=== PATIENT | female | born 1975 | race Caucasian/White ===

== ENCOUNTER 2016-10-31 14:04 | Emergency (ER) | payer OTHER ==
[~2016-10-31] VITALS: Ht 160 cm; Wt 108.5 kg
[2016-10-31 14:08] VITALS: Ht 160 cm; Wt 108.5 kg
[2016-10-31] MEDS ORDERED: OFLO5DRO7 LEFT EAR (14:27)
[2016-10-31] MEDS ORDERED: AMOX1TAB10 PO (14:27)
--- NOTE | 2016-10-31 14:35 | ERD ---
ER Documentation Chief Complaint Date/Time DATE: 10/31/16 TIME: 14:29 Chief Complaint LEFT EAR PAIN X 2 WEEKS HPI 41 yo female comes in with left ear pain for 2 weeks. She states it is in the inner ear that radiates outside, moderate pain that is achy. No recent swimming. No discharge, otorrhea. No fever or chills. No URI symptoms. ROS All systems reviewed and are negative except as per history of present illness. Medications Home Meds Active Scripts Ofloxacin Otic (Ofloxacin Otic) 5 Ml Drops, 5 DROP LEFT EAR DAILY for 7 Days, # 1 BOTTLE Prov:JEY MCKNIGHT PA-C 10/31/16 Amoxicillin/Potassium Clav (Amox-Clav 875-125 mg Tablet) 875-125 mg Tab, 1 TAB PO BID for 7 Days, #14 TAB Prov:JEY MCKNIGHT PA-C 10/31/16 Allergies Allergies: Coded Allergies: No Known Allergy (Unverified , 10/31/16) PMhx/Soc Hx Alcohol Use: No Hx Substance Use: No Hx Tobacco Use: No Physical Exam Vitals Vital Signs Date Time Temp Pulse Resp B/P Pulse Ox O2 Delivery O2 Flow Rate FiO2 10/31/16 14:08 99.1 70 18 127/73 98 Physical Exam General: Well-developed, well-nourished. The patient appears in no acute distress. HEENT: Head is normocephalic, atraumatic. No scleral icterus. Left inner ear is erythematous, no perforation, otorrhea or discharge, there is tenderness at the external ear canal with otoscope introduction. Mastoids are nontender. Neck: Supple. Nontender. Lungs: Clear to auscultation. Normal air movement. Heart: Regular rate and rhythm. S1 and S2 are normal. No murmurs, gallops, or rubs. Abdomen: Nondistended. Extremities: No clubbing or cyanosis. Moving extremities x 4. No weakness. Neurologic: Alert and oriented 3. No focal deficits. Normal speech and gait. Skin: Normal turgor. No rash or lesions. Procedures/MDM 41-year-old female comes in with otitis media left ear, otitis externa. No evidence of mastoiditis, meningitis, deep space infection, cellulitis or foreign body. Departure Diagnosis: Primary Impression: Left otitis media Condition: Good Patient Instructions: Understanding Middle Ear Infections, External Ear Infection (Adult) Additional Instructions: Llame al doctor MAANA y nik hilary MARIA GUADALUPE PARA DENTRO DE 1-2 EASTMAN.Dgale a la secretaria que nosotros le instruimos hacer esta maria guadalupe.Avise o llame si boyce condicin se empeora antes de la maria guadalupe. Regresa aqui si peor o no mejor. JEY MCKNIGHT PA-C Oct 31, 2016 14:35
== END 2016-10-31 14:59 | disposition home or self-care (01) ==
LOC: FTE 14:04
DX: H66.92 Otitis media, unspecified, left ear (principal)
CPT/HCPCS: 99283

== ENCOUNTER 2016-11-03 11:18 | Emergency (ER) | payer OTHER ==
[~2016-11-03] VITALS: Ht 160 cm; Wt 100.0 kg
[~2016-11-03 11:18] MED LIST: AMOX1TAB10 PO; OFLO5DRO7 LEFT EAR
[2016-11-03 11:23] VITALS: Ht 160 cm; Wt 100.0 kg
--- NOTE | 2016-11-03 11:47 | ERD ---
ER Documentation Chief Complaint Date/Time DATE: 11/03/16 TIME: 11:43 Chief Complaint left ear ache HPI 41-year-old female comes in with left inner ear fullness, difficulty hearing. She was recently treated for otitis media and otitis externa has been using eardrops on occasion. She reports that she feels lightheaded, vertiginous symptoms with the room feels like it is spinning. She has not had any fevers or chills. No neck stiffness. Denies otorrhea or discharge. ROS All systems reviewed and are negative except as per history of present illness. Medications Home Meds Active Scripts Cetirizine Hcl* (Zyrtec*) 10 Mg Capsule, 10 MG PO DAILY, #10 TAB.CHEW Prov:JEY MCKNIGHT PA-C 11/03/16 Pseudoephedrine Hcl (Sudafed 12 Hour) 120 Mg Tablet.sa, 120 MG PO BID, #6 Prov:JEY MCKNIGHT PA-C 11/03/16 Ofloxacin Otic (Ofloxacin Otic) 5 Ml Drops, 5 DROP LEFT EAR DAILY for 7 Days, # 1 BOTTLE Prov:JEY MCKNIGHT PA-C 10/31/16 Amoxicillin/Potassium Clav (Amox-Clav 875-125 mg Tablet) 875-125 mg Tab, 1 TAB PO BID for 7 Days, #14 TAB Prov:JEY MCKNIGHT PA-C 10/31/16 Allergies Allergies: Coded Allergies: No Known Allergy (Unverified , 10/31/16) PMhx/Soc Medical and Surgical Hx: pt denies Medical Hx, pt denies Surgical Hx Hx Alcohol Use: No Hx Substance Use: No Hx Tobacco Use: No Smoking Status: Never smoker Physical Exam Vitals Vital Signs Date Time Temp Pulse Resp B/P Pulse Ox O2 Delivery O2 Flow Rate FiO2 11/03/16 11:23 97.9 68 18 128/60 99 Physical Exam General: Well-developed, well-nourished. The patient appears in no acute distress. HEENT: Head is normocephalic, atraumatic. No scleral icterus. Right ear is normal, left ear has debris, there is erythema to the external canal. There is no mastoid tenderness. Neck: Supple. Nontender. Lungs: Clear to auscultation. Normal air movement. Heart: Regular rate and rhythm. S1 and S2 are normal. No murmurs, gallops, or rubs. Abdomen: Nondistended. Extremities: No clubbing or cyanosis. Moving extremities x 4. No weakness. Neurologic: Alert and oriented 3. No focal deficits. Normal speech and gait. Skin: Normal turgor. No rash or lesions. Procedures/MDM ED course: Irrigation was done to the left ear with Normal saline, and patient reports symptomatic improvement, TM is bulging with slight erythema, no perforation. Medical decision making: This is a 41-year-old female comes in with left-sided ear pain, improving and she reports ear fullness as well as difficulty hearing. Patient states that her pain has improved with antibiotics. I will advise her to continue the ofloxacin otic drops and Augmentin. She does have fullness to the tympanic membrane, and will be given Zyrtec and Sudafed for this. Vertiginous dizziness is likely associated with the infection. I doubt meningitis, deep space infection, there are no signs of mastoiditis. Departure Diagnosis: Primary Impression: Left ear pain Condition: Good JEY MCKNIGHT PA-C Nov 03, 2016 11:47
[2016-11-03] MEDS ORDERED: PSEU120T51 PO (12:57)
[2016-11-03] MEDS ORDERED: CETI10CA PO (12:57)
== END 2016-11-03 14:05 | disposition home or self-care (01) ==
LOC: FTE 11:18
DX: H92.02 Otalgia, left ear (principal)
CPT/HCPCS: 99283

== ENCOUNTER 2018-05-12 08:41 | Emergency (ER) | payer OTHER ==
[~2018-05-12] VITALS: Wt 108.5 kg
[~2018-05-12 08:41] MED LIST changes: +CETI10CA PO; +PSEU120T12 PO
[2018-05-12 08:44] VITALS: BP 135/81; PULSE 70; RESP 18
[2018-05-12] MEDS ORDERED: KETOROLAC 30 MG INJ IM STA (09:34)
[2018-05-12] MEDS ORDERED: IBUP-1542 PO (10:30)
[2018-05-12] MEDS ORDERED: FIORICET PO (10:30)
--- NOTE | 2018-05-12 17:12 | ERD ---
ER Documentation Chief Complaint Chief Complaint HEADACHE SINCE YESTERDAY HPI 43-year-old female presents for headache times 1 day. Patient states that the headache is on the right side. Patient took Tylenol and Motrin at home with only mild relief. The headache is noted to be 8 out of 10, associated with photophobia. She denies any nausea vomiting. Denies fevers or chills. She has had similar headaches in the past. No other complaints. ROS All systems reviewed and are negative except as per history of present illness. Medications Home Meds Active Scripts Acetamin/Butalbital/Caffeine* (Fioricet*) [id number] Tab, 1 TAB PO Q6H PRN for PAIN, #30 TAB Prov:ABDIFATAH RODRIGUEZ DO 05/12/18 Ibuprofen* (Motrin*) 600 Mg Tab, 600 MG PO Q6H PRN for PAIN, #30 TAB Prov:ABDIFATAH RODRIGUEZ DO 05/12/18 Cetirizine Hcl* (Zyrtec*) 10 Mg Capsule, 10 MG PO DAILY, #10 TAB.CHEW Prov:JEY MCKNIGHT PA-C 11/03/16 Pseudoephedrine Hcl (Sudafed 12 Hour) 120 Mg Tablet.sa, 120 MG PO BID, #6 Prov:JEY MCKNIGHT PA-C 11/03/16 Ofloxacin Otic (Ofloxacin Otic) 5 Ml Drops, 5 DROP LEFT EAR DAILY for 7 Days, #1 BOTTLE Prov:JEY MCKNIGHT PA-C 10/31/16 Amoxicillin/Potassium Clav (Amox-Clav 875-125 mg Tablet) 875-125 mg Tab, 1 TAB PO BID for 7 Days, #14 TAB Prov:JEY MCKNIGHT PA-C 10/31/16 Allergies Allergies: Coded Allergies: No Known Allergy (Unverified , 10/31/16) PMhx/Soc History of Surgery: No Anesthesia Reaction: No Hx Neurological Disorder: No Hx Respiratory Disorders: No Hx Cardiac Disorders: No Hx Psychiatric Problems: No Hx Miscellaneous Medical Probl: No Hx Alcohol Use: No Hx Substance Use: No Hx Tobacco Use: No Smoking Status: Never smoker Physical Exam Vitals Temperature 98.2, pulse 70, respiration 18, blood pressure 135/81 Physical Exam Const: No acute distress Head: Atraumatic, no temporal tenderness to palpation Eyes: Normal Conjunctiva ENT: Normal External Ears, Nose and Mouth. Neck: Full range of motion. No meningismus. Resp: Clear to auscultation bilaterally Cardio: Regular rate and rhythm, no murmurs, bilateral radial and dorsalis pedis pulses intact Skin: No petechiae or rashes Back: No midline or flank tenderness Ext: No cyanosis, or edema, bilateral upper and lower extremity muscle strength intact Neur: Awake and alert, bilateral upper and lower extremity sensation intact Psych: Normal Mood and Affect Results 24 hrs Laboratory Tests Test 05/12/18 09:43 POC Beta HCG, Qualitative NEGATIVE Current Medications Medications Dose Sig/Viki Start Time Status Last (Trade) Ordered Route PRN Stop Time Admin Dose Reason Admin Ketorolac 30 mg ONCE STAT 05/12/18 DC 05/12/18 Tromethamine IM 09:34 09:56 (Toradol) 05/12/18 09:35 Procedures/MDM Medical Decision Making: Differential diagnosis includes but not limited to primary headache, subarachnoid hemorrhage, meningitis, temporal arteritis, glaucoma, hypertension, cerebral ischemia, carotid or vertebral arterial dissection, brain tumor. Patient appeared well on physical examination, nontoxic appearing. No history of fever. There is low suspicion for meningitis. Given patient's age and no temporal area tenderness to palpation, low suspicion for temporal arteritis. Patient has no vision changes and pupils are reactive bilaterally, low suspicion for glaucoma. There is also no focal neurologic deficits to suggest a brain tumor. Patient has normal sensation and muscle strength, low suspicion for cerebral ischemia. Given headache is similar to prior headaches, patient possibly has a primary headache. In the ER patient given Toradol Symptoms improved with treatment. Patient given prescription for Fioricet Patient advised to follow up with PCP in 1-2 days. Patient advised to return to ED for new or worsening symptoms. Patient stable on discharge from the ED. Disclaimer: Inadvertent spelling and grammatical errors are likely due to EHR/dictation software use and do not reflect on the overall quality of patient care. Also, please note that the electronic time recorded on this note does not necessarily reflect the actual time of the patient encounter. Departure Diagnosis: Primary Impression: Headache Headache type: unspecified Headache chronicity pattern: unspecified pattern Intractability: not intractable Qualified Codes: R51 - Headache Condition: Fair Patient Instructions: Self-Care for Headaches Referrals: ABDIFATAH SHEA MD (PCP) Additional Instructions: Llame al doctor MAANA y nik hilary MARIA GUADALUPE PARA DENTRO DE 1-2 [place].Dgale a la secretaria que nosotros le instruimos hacer esta maria guadalupe.Avise o llame si boyce condicin se empeora antes de la maria guadalupe. Regresa aqui si peor o no mejor. ABDIFATAH RODRIGUEZ DO May 12, 2018 17:12
== END 2018-05-12 13:45 | disposition home or self-care (01) ==
LOC: FTE 08:41
DX: R51 Headache (principal)
CPT/HCPCS: 81025; 96372; J1885; Z7502

== ENCOUNTER 2018-09-19 09:45 | Emergency (ER) | payer OTHER ==
[~2018-09-19] VITALS: Ht 165.1 cm; Wt 100.0 kg
[~2018-09-19 09:45] MED LIST changes: +FIORICET PO; +IBUP-1542 PO
[2018-09-19 10:05] VITALS: Ht 165.1 cm; Wt 100.0 kg
[2018-09-19] MEDS ORDERED: ESCI10TA48 PO (12:10)
[2018-09-19 12:20] VITALS: BP 123/61; PULSE 68; RESP 16
--- NOTE | 2018-09-19 13:19 | ERD ---
ER Documentation Chief Complaint Chief Complaint SI ; NEEDS PSYCHOLOGICAL EVALUATION HPI 43-year-old woman with a history of depression presenting with increased anhedonia for the last few months. She states she has had mild low level daily depression for a few years but has never attempted medical therapy. She denies suicidal homicidal ideation, no fevers or chills, no complaints of chest pain or shortness of breath. She like to begin therapy until she follows up with her PMD. ROS All systems reviewed and are negative except as per history of present illness. Medications Home Meds Active Scripts Escitalopram Oxalate* (Escitalopram Oxalate*) 10 Mg Tablet, 10 MG PO DAILY, #30 TAB Prov:LUKE MEANS MD 09/19/18 Acetamin/Butalbital/Caffeine* (Fioricet*) [id number] Tab, 1 TAB PO Q6H PRN for PAIN, #30 TAB Prov:ABDIFATAH RODRIGUEZ DO 05/12/18 Ibuprofen* (Motrin*) 600 Mg Tab, 600 MG PO Q6H PRN for PAIN, #30 TAB Prov:ABDIFATAH RODRIGUEZ DO 05/12/18 Cetirizine Hcl* (Zyrtec*) 10 Mg Capsule, 10 MG PO DAILY, #10 TAB.CHEW Prov:JEY MCKNIGHT PA-C 11/03/16 Pseudoephedrine Hcl (Sudafed 12 Hour) 120 Mg Tablet.sa, 120 MG PO BID, #6 Prov:JEY MCKNIGHT PA-C 11/03/16 Ofloxacin Otic (Ofloxacin Otic) 5 Ml Drops, 5 DROP LEFT EAR DAILY for 7 Days, #1 BOTTLE Prov:JEY MCKNIGHT PA-C 10/31/16 Amoxicillin/Potassium Clav (Amox-Clav 875-125 mg Tablet) 875-125 mg Tab, 1 TAB PO BID for 7 Days, #14 TAB Prov:JEY MCKNIGHT PA-C 10/31/16 Allergies Allergies: Coded Allergies: No Known Allergy (Unverified , 10/31/16) PMhx/Soc Depression History of Surgery: No Anesthesia Reaction: No Hx Neurological Disorder: No Hx Respiratory Disorders: No Hx Cardiac Disorders: No Hx Psychiatric Problems: No Hx Miscellaneous Medical Probl: No Hx Alcohol Use: No Hx Substance Use: No Hx Tobacco Use: No FmHx Family History: No diabetes Physical Exam Vitals Vital Signs Date Temp Pulse Resp B/P (MAP) Pulse Ox O2 O2 Flow FiO2 Time Delivery Rate 09/19/18 99.7 70 19 125/63 96 10:05 (83) Physical Exam GENERAL: Well-developed, well-nourished, well-hydrated, in no apparent distress, looks nontoxic in appearance NEURO: Alert and oriented 3, cranial nerves II through XII intact bilaterally, pupils equal round reactive to light, no focal deficits or facial asymmetry, sensation intact distally Strength 5/5 in upper and lower extremities bilaterally CARDIAC: Regular rate and rhythm, no murmurs rubs or gallops LUNGS: Clear bilaterally no wheezing crackles or stridor SKIN: Warm and dry to touch, no abrasions, contusions, or hematomas, no lacerations, no ecchymosis, no target lesions, and without ulcers EXTREMITIES: No clubbing cyanosis or edema, calves are bilaterally symmetrical, no Homans sign, no popliteal cord sign. Distal pulses equal and bilateral PSYCH: Appears depressed Procedures/MDM I spoke to the patient at bedside and provided reassurance. She seems like a good candidate for outpatient management and I agreed to prescribe her antidepressants until she can follow-up with PMD for medication reevaluation and possible adjustment. She was also given recommendations to nearby psychiatric facilities. I spoke to the patient about escitalopram therapy, its use, and side effects including possible depression exacerbation, suicidality, palpitations, TEN, SJS, headache, insomnia, diarrhea, decreased libido, and vomiting. I did tell her if she experiences any of the side effects to discontinue the medication and return here for reevaluation. She agreed to this plan. Differential diagnoses considered, included but not limited to acute coronary syndrome, pulmonary embolism, aortic dissection, abdominal aortic aneurysm, sepsis, stroke, meningitis, encephalitis, pneumonia, appendicitis, cholecystitis, bowel obstruction, pyelonephritis, nephrolithiasis, cystitis, as well as metabolic, hematologic, and electrolyte abnormalities. As well as absces s, cellulitis, fractures, and dislocations. Patient feels much better at this time, and vital signs are normal, symptoms have improved. I did give strict instructions to return to the ED if symptoms continue or worsen, patient will otherwise follow-up with primary care physician. Patient understood instructions and agreed to plan. Disclaimer: Inadvertent spelling and grammatical errors are likely due to EHR/dictation software use and do not reflect on the overall quality of patient care. Also, please note that the electronic time recorded on this note does not necessarily reflect the actual time of the patient encounter. Departure Diagnosis: Primary Impression: Depression Depression Type: major depressive disorder Major depression recurrence: single episode Active/Remission status: currently active Major depression episode severity: moderate Qualified Codes: F32.1 - Major depressive disorder, single episode, moderate Condition: Good Patient Instructions: Depression Referrals: ABDIFATAH SHEA MD (PCP) LUKE MEANS MD September 19, 2018 13:19
== END 2018-09-19 12:45 | disposition home or self-care (01) ==
LOC: E/R 09:45
DX: F32.1 Major depressive disorder, single episode, moderate (principal)
CPT/HCPCS: 99283